=== PATIENT | female | born 1985 | race Two or more races ===

== ENCOUNTER → 2020-06-21 | Outpatient (CLI) | payer SELFPAY ==
--- NOTE | 2020-06-21 16:15 | RADIOLOGY REPORT (SQ) ---
EXAM DESCRIPTION: U/S OB LIMITED IMAGES COMPLETED DATE/TIME: 06/21/2020 3:27 pm REASON FOR STUDY: Z34.83 ENCOUNTER FOR SUPRVSN OF NORMAL , THIRD TRIMESTER Z34.83 ENCOUNTE R FOR SUPRVSN OF NORMAL , THIRD TRIM COMPARISON: None. TECHNIQUE: Limited transabdominal grayscale ultrasound for evaluation of specific requested obstetri cynthia parameters. LIMITATIONS: None. FINDINGS: CERVICAL LENGTH: 4 cm. Closed. AWAIS: 8 cm. LVP: 2.8 x 3 cm. FHR: 143 beats per minute. PRESENTATION: Cephalic. PLACENTA: Posterior. Grade 1. ANATOMY: Stomach, kidneys, and bladder are within within normal limits. OTHER: Intrauterine gestation of 39 weeks 4 day these. IMPRESSION: LIMITED OBSTETRICAL ULTRASOUND WITH MEASURED PARAMETERS DELINEATED ABOVE. Trimester of : Third trimester - 28 weeks to delivery. TECHNICAL DOCUMENTATION: JOB ID: [id number] 2010 [employer]- All Rights Reserved Reading location - IP/workstation name: [email or web address]
== END ==
LOC: RAD 14:55
PROVIDERS: ATTEND Midwife
DX: Z34.83 Encounter for supervision of other normal pregnancy, third trimester (principal); Z3A.39 39 weeks gestation of pregnancy
CPT/HCPCS: 76815

== ENCOUNTER 2020-06-23 13:16 | Outpatient (CLI) | payer SELFPAY ==
--- NOTE | 2020-06-23 14:01 | Non Stress Test Report ---
Non Stress Test Datetime Report Generated by CPN: 06/23/2020 14:00 DEMOGRAPHIC EGA NST: 39.6 INDICATION Indication for Study (NST) Other: ordered from [facility] VITAL SIGNS Temperature - NST: 98.2 Pulse - NST: 80 RESP - NST: 15 NBPSYS NST: 105 NBPDIA NST: 68 MONITORING Monitor Explained: Monitor Explained; Test Explained; Patient Verbalized Understanding Time on Monitor: 06/23/2020 13:28 Time off Monitor: 06/23/2020 13:48 NST Duration: 20 NST INTERVENTIONS NST Interventions: PO Hydration Physician Notified NST: C Downs CNM BABY A: [id number] BABY A Movement : Present Contraction Frequency : 0 FHR Baseline : 125 Accelerations : 15X15 Decelerations : None Variability : Moderate 6-25bpm NST Review: Meets Criteria for Reactive NST NST Review and Verified By : SAutry NST Results: Reactive NST COMMENTS NST Comments: CNM on unit reviewing FHT strip NST REPORT Report Trigger: Send Report
== END 2020-06-23 13:52 | disposition home or self-care (01) ==
LOC: LC 13:16
PROVIDERS: ATTEND Obstetrics & Gynecology
DX: Z34.83 Encounter for supervision of other normal pregnancy, third trimester (principal); Z3A.39 39 weeks gestation of pregnancy
CPT/HCPCS: 59025

== ENCOUNTER 2020-07-01 08:55 | Outpatient (CLI) | payer SELFPAY ==
--- NOTE | 2020-07-01 09:34 | Non Stress Test Report ---
Non Stress Test Datetime Report Generated by CPN: 07/01/2020 09:34 DEMOGRAPHIC EGA NST: 41.0 INDICATION Indication for Study (NST) Other: IUP at 41.0, Bi-weekly NST VITAL SIGNS Temperature - NST: 98.2 Pulse - NST: 90 RESP - NST: 18 NBPSYS NST: 107 NBPDIA NST: 58 MONITORING Monitor Explained: Monitor Explained; Test Explained; Patient Verbalized Understanding Time on Monitor: 07/01/2020 09:09 Time off Monitor: 07/01/2020 09:29 NST Duration: 20 NST INTERVENTIONS NST Interventions: PO Hydration Physician Notified NST: P.Coyne, CNM BABY A: [id number] BABY A Movement : Present Contraction Frequency : None FHR Baseline : 130 Accelerations : 15X15 Decelerations : None Variability : Moderate 6-25bpm NST Review: Meets Criteria for Reactive NST NST Review and Verified By : VERÓNICA Salinas Results: Reactive NST REPORT Report Trigger: Send Report
== END 2020-07-01 10:07 | disposition home or self-care (01) ==
LOC: LC 08:55
PROVIDERS: ATTEND Obstetrics & Gynecology
DX: O48.0 Post-term pregnancy (principal); Z3A.41 41 weeks gestation of pregnancy

== ENCOUNTER 2020-07-02 08:04 | Inpatient (IN) | payer SELFPAY ==
[2020-07-02] MEDS ORDERED: OXYTOCIN/0.9 % SODIUM CHLORIDE 30 UNIT/500 ML RTUINJ IV PRN ×2 (08:16→16:25)
[2020-07-02] MEDS ORDERED: RINGERS SOLUTION,LACTATED 1,000 ML IV ONE (08:20)
[2020-07-02 08:43] LABS: ABSOLUTE LYMPHOCYTES (AUTO) 1.4 10^3/uL (0.5-4.7); ABSOLUTE MONOCYTES (AUTO) 0.5 10^3/uL (0.1-1.4); ABSOLUTE NEUT (AUTO) 4.6 10^3/uL (1.7-8.2); BASOPHILS % (AUTO) 0.4 % (0-2); EOSINOPHILS % (AUTO) 0.7 % (0-6); HEMATOCRIT 34.8 % (36.0-47.0); HEMOGLOBIN 12.5 g/dL (12.0-15.5); LYMPHOCYTES % (AUTO) 21.4 % (13-45); MEAN CORPUSCULAR HEMOGLOBIN 30.6 pg (27.0-33.4); MEAN CORPUSCULAR VOLUME 85 fl (80-97); PLATELET COUNT 133 10^3/uL (150-450); RED BLOOD COUNT 4.09 10^6/uL (3.72-5.28); RED CELL DISTRIBUTION WIDTH 14.4 % (11.5-14.0); SEGMENTED NEUTROPHILS % (AUTO) 69.5 % (42-78); TOTAL CELLS COUNTED % (AUTO) 100 %; WHITE BLOOD COUNT 6.6 10^3/uL (4.0-10.5)
[2020-07-02 08:55] LABS: APPEARANCE,URINE SLIGHTLY-CLOUDY; BILIRUBIN,URINE NEGATIVE (NEGATIVE); COLOR,URINE YELLOW; GLUCOSE, URINE NEGATIVE (NEGATIVE); KETONES,URINE NEGATIVE (NEGATIVE); LEUKOCYTE ESTERASE,URINE NEGATIVE (NEGATIVE); NITRITE,URINE NEGATIVE (NEGATIVE); PROTEIN,URINE NEGATIVE (NEGATIVE); URINE SPECIFIC GRAVITY 1.024
[2020-07-02] MEDS: RINGERS SOLUTION,LACTATED 1,000 ML IV PRN ×2 (09:00→11:30)
[2020-07-02] MEDS ORDERED: PENICILLIN G POTASSIUM 5,000,000 UNIT in DEXTROSE 5%-WATER 100 ML IV ONE (09:00)
[2020-07-02 09:09] LABS: URINE AMPHETAMINES SCREEN NEGATIVE; URINE BARBITURATES SCREEN NEGATIVE; URINE BENZODIAZEPINES SCREEN NEGATIVE; URINE COCAINE SCREEN NEGATIVE; URINE MARIJUANA (THC) SCREEN NEGATIVE; URINE METHADONE SCREEN NEGATIVE; URINE PHENCYCLIDINE SCREEN NEGATIVE
[2020-07-02] MEDS ORDERED: OXYTOCIN 10 UNIT/ML VIAL ONE (09:15)
[2020-07-02] MEDS ORDERED: MISOPROSTOL 0.2 MG TABLET ONE (09:15)
[2020-07-02] MEDS ORDERED: LIDOCAINE 1% INJ-PF (10 MG/ML) 30 ML SDV ONE (09:16)
[2020-07-02] MEDS ORDERED: OXYTOCIN/0.9 % SODIUM CHLORIDE 30 UNIT/500 ML RTUINJ ONE (09:16)
[2020-07-02] MEDS ORDERED: PENICILLIN G-K 5 MILLION UNIT VIAL ONE ×2 (09:16→13:03)
--- NOTE | 2020-07-02 10:48 | Admission Physical ---
Datetime Report Generated by CPN: 07/02/2020 10:47 CURRENT ADMISSION Chief Complaint: Scheduled Induction of Labor Indication for Induction: Post Dates Admit Impression : Term, Intrauterine ; No Active Labor; Intact Membranes; Induction of Labor Admit Plan: Admit to Unit; Initiate Labor Induction Protocol ALLERGIES Medication Allergies: No Medication Allergies: No Known Allergies (06/23/2020) Latex: No Latex Allergies OBSTETRICAL HISTORY EDC: 06/24/2020 00:00 : 2 Para: 1 Term: 1 : 0 SAB: 0 IAB: 0 Ectopic: 0 Livin Cesareans: 0 VBACs: 0 Multiple Births: 0 Gestational Diabetes: No Rh Sensitization: No Incompetent Cervix: No KATELYNN: No Infertility: No ART Treatment: No Uterine Anomaly: No IUGR: No Hx Previous C/S: No Macrosomia: No Hx Loss/Stillborn: No PIH: No Hx : No Placenta Previa/Abruption: No Depression/PP Depression: No PTL/PROM: No Post Hemorrhage: Yes Current Procedures: Ultrasound Obstetrical History Comments: G1- 11/13/2015 , possible PPH from records G2- current; LPNC, induced thrombocytopenia (Annotations: Data stored by CPN on behalf of user) SEE RECORDS Alcohol: No Marijuana : No Cocaine: No Other Illicit Drugs: No Cigarettes: Never Smoker. [id number] Advised to Stop: No MEDICAL HISTORY Diabetes: No Blood Transfusion: No Pulmonary Disease (Asthma, TB): No Breast Disease: No Hypertension: No Administration Specialist Surgery: No Heart Disease: No Hosp/Surgery: Yes Autoimmune Disorder: No Anesthetic Complications: No Kidney Disease: Yes Abnormal Pap Smear: No Neuro/Epilepsy: No Psychiatric Disorders: No Other Medical Diseases: No Hepatitis/Liver Disease: No Significant Family History: No Varicosities/Phlebitis: No Trauma/Violence : No Thyroid Dysfunction: No Medical History Comments: UTIs, childbirth INFECTIOUS HISTORY Gonorrhea: No Genital Herpes: No Chlamydia: No Tuberculosis: No Syphilis: No Hepatitis: No HIV/AIDS Exposure: No Rash or Viral Illness: No HPV: No PHYSICAL EXAM General: Normal HEENT: Normal Neurologic: Normal Thyroid: Deferred Heart: Normal Lungs: Normal Breast: Deferred Back: Normal Abdomen: Normal Genitourinary Exam: Normal Extremities: Normal DTRs: Normal Pelvic Type: Adequate Vital Signs: Reviewed VAGINAL EXAM Dilatation: 2 Effacement: 70 Station: hi Contraction Comments: irreg MEMBRANES Membranes: Intact FETUS A EGA: 41.1 Monitoring: External US FHR- Baseline: 120 Variability: Moderate 6-25bpm Accelerations: 15X15 Decelerations: None FHR Category: Category I Presentation: Vertex Admit Comment: 35yo at 41+1ega presents for IOL due to Post ALEKSANDAR. Late to Care with [facility]. Slovak speaking only. GBS pos on PCN for prophy. Admit to labor and delivery for IOL. Will attempt cervical ripening with pitocin and poss cooks catheter. Anticipate . PLANS FOR LABOR AND DELIVERY Labor and Delivery: None Pain Management: Natural Feeding Preference: Breast Benefit of Breast Feed Discussed: Yes Circumcision: N/A INFORMED CONSENT Informed Consent Obtained: Vaginal Delivery; Induction of Labor; Risks, Benefits and Alternatives Discussed Signature: with User ID: [email or web address]
[2020-07-02] MEDS ORDERED: PENICILLIN G POTASSIUM 2,500,000 UNIT in DEXTROSE 5%-WATER 50 ML IV SCH (13:00)
[2020-07-02] MEDS ORDERED: PSEUDOEPHEDRINE HCL 30 MG TABLET PO PRN (16:25)
[2020-07-02] MEDS ORDERED: PROMETHAZINE HCL INJ 25 MG/1 ML VIAL IV PRN (16:25)
[2020-07-02] MEDS ORDERED: PROMETHAZINE HCL 25 MG TABLET PO PRN (16:25)
[2020-07-02] MEDS ORDERED: NA PHOS,M-B/NA PHOS,DI-BA (ADULT) 133 ML ENEMA PR PRN (16:25)
[2020-07-02] MEDS ORDERED: ACETAMINOPHEN 325 MG TABLET PO PRN (16:25)
[2020-07-02] MEDS ORDERED: ACETAMINOPHEN WITH CODEINE #3 TABLET PO PRN ×2 (16:25)
[2020-07-02] MEDS ORDERED: DIPH/PERTUSS(ACELL)/TETANUS VAC/PF 0.5 ML SYR (>=10YO) IM PRN (16:25)
[2020-07-02] MEDS ORDERED: MAGNESIUM HYDROXIDE SUSP 30 ML UDCUP PO PRN (16:25)
[2020-07-02] MEDS ORDERED: DIBUCAINE 1% OINTMENT 28 GM TP PRN (16:25)
[2020-07-02] MEDS ORDERED: BENZOCAINE/MENTHOL AEROSOL SPRAY 56 ML TOP PRN (16:25)
[2020-07-02] MEDS ORDERED: PROMETHAZINE HCL 25 MG SUPP.RECT PR PRN (16:25)
[2020-07-02] MEDS ORDERED: GLYCERIN/WITCH HAZEL LEAF 1 EACH MED..WIPE TP PRN (16:25)
[2020-07-02] MEDS ORDERED: MEASLES,MUMPS&RUBELLA VACC/PF 0.5 ML VIAL SUBCUT PRN (16:25)
[2020-07-02] MEDS ORDERED: ZOLPIDEM TARTRATE 5 MG TABLET PO PRN (16:25)
[2020-07-02] MEDS ORDERED: DIPHENHYDRAMINE HCL 25 MG CAPSULE PO PRN (16:25)
[2020-07-02 17:59] LABS: HEMATOCRIT 35.8 % (36.0-47.0); HEMOGLOBIN 12.4 g/dL (12.0-15.5); MEAN CORPUSCULAR HEMOGLOBIN 29.9 pg (27.0-33.4); MEAN CORPUSCULAR HGB CONC 34.7 g/dL (32.0-36.0); MEAN CORPUSCULAR VOLUME 86 fl (80-97); PLATELET COUNT 142 10^3/uL (150-450); RED BLOOD COUNT 4.15 10^6/uL (3.72-5.28); RED CELL DISTRIBUTION WIDTH 14.6 % (11.5-14.0); WHITE BLOOD COUNT 12.8 10^3/uL (4.0-10.5)
[2020-07-02 18:01] LABS: PROTHROMBIN TIME 13.4 SEC (11.4-15.4)
[2020-07-02] MEDS ORDERED: IBUPROFEN 800 MG TABLET ONE (18:02)
[2020-07-02] MEDS ORDERED: FERROUS SULFATE 325 MG TABLET PO ONE (18:51)
[2020-07-02] MEDS ORDERED: DOCUSATE SODIUM 100 MG CAPSULE ONE (18:51)
[2020-07-02] MEDS: DOCUSATE SODIUM 100 MG CAPSULE PO SCH (18:53)
[2020-07-02] MEDS: FERROUS SULFATE 325 MG TABLET PO SCH (18:53)
[2020-07-02] MEDS ORDERED: ACETAMINOPHEN WITH CODEINE #3 TABLET ONE (19:01)
--- NOTE | 2020-07-02 19:08 | Delivery Summary ---
Del Sum A-C Datetime Report Generated by CPN: 07/02/2020 19:08 DELIVERY PERSONNEL DELIVERY PERSONNEL: [id number] Delivery Doctor:: Meredith Posadas CNM Labor and Delivery Nurse:: Lea Swift RNmeter record clerk Nurse:: LACIE Zabala Wallpaper Printer/ELECTRIC DISTRIBUTION ENGINEER: Fawn Kent, MERCHANDISING MANAGER Wallpaper Printer/ELECTRIC DISTRIBUTION ENGINEER: Irene Pop, MERCHANDISING MANAGER MATERNAL INFORMATION Delivery Anesthesia: None Medications After Delivery: Pitocin 30 Units in 500ml NS/D5W; Cytotec 1000mcg Per Rectum/Vagina Delivery QBL: 980 Maternal Complications: None Provider Comments: SVDVF delivered CHRISTELLE. Infant vigorous to mothers abd for drying. Large gush of blood about 1 minute later, cord doubly clamped and cut. Attempted to deliver placenta spontaneously. Manual removal after another gush of blood. Membranes trailing and difficulty to remove. Multiple fibroids noted on exam of fundus during massage. Cytotec placed rectally. Laceration repair as above. Then uterine exploration d/t continued trickling blood, piece of membranes removed with clots. Bleeding stabilized. Mother and stable. Apgars 9.9. Dr. Vargas notified of approx 900ml blood loss, labs ordered. Monitor bleeding closely. LABOR SUMMARY EDC: 06/24/2020 00:00 No. Babies in Womb: 1 Attempted: No Labor Anesthesia: None LABOR INFORMATION Reason for Induction: Post Dates Onset of Labor: 07/02/2020 13:59 Complete Dilatation: 07/02/2020 16:15 Oxytocin: Induction Group B Beta Strep: Positive Antibiotics # of Doses: 2 Antibiotics Time of Last Dose: 07/02/2020 13:17 Name of Antibiotic Given: PCN Steroids Given: None Reason Steroids Not Administered: Not Applicable MEMBRANES Membranes Rupture Method: Artificial Rupture of Membranes: 07/02/2020 13:59 Length of Rupture (hr): 2.43 Amniotic Fluid Color: Clear Amniotic Fluid Amount: Small Amniotic Fluid Odor: Normal STAGES OF LABOR Stage 1 hr: 2 Stage 1 min: 16 Stage 2 hr: 0 Stage 2 min: 10 Stage 3 hr: 0 Stage 3 min: 4 Total Time in Labor hr: 2 Total Time in Labor min: 30 VAGINAL DELIVERY Episiotomy: None Laceration #1: Perineal Laceration Extension #1: Second Degree Laceration Repair: Yes Laceration Repair Note: 2.0 chromic used to reapproximate perineal laceration Sponge Count Correct: Yes Sharps Count Correct: Yes CSECTION DELIVERY Primary Indication: N/A Secondary Indication: N/A CSection Incidence: N/A Labor: N/A Elective: N/A CSection Incision: N/A BABY A INFORMATION Delivery Date/Time: 07/02/2020 16:25 Method of Delivery: Vaginal Nurse Controlled Delivery: No Born in Route : No : N/A Forceps: N/A Vacuum Extraction: N/A Shoulder Dystocia : No PRESENTATION/POSITION BABY A Presentation: Cephalic Cephalic Presentation: Vertex Vertex Position: Right Occipital Anterior Breech Presentation: N/A PLACENTA INFORMATION BABY A Placenta Delivery Time : 07/02/2020 16:29 Placenta Method of Delivery: Spontaneous Placenta Status: Delivered SCORES BABY A Heart Rate 1 min: >100 bpm Resp Effort 1 min: Good Cry Reflex Irritability 1 min: Cough or Sneeze or Pulls Away Muscle Tone 1 min: Active Motion Color 1 min: Body [place], Extremities Blue Resuscitation Effort 1 min: Tactile Stimulation SCORE 1 MIN: 9 Heart Rate 5 min: >100 bpm Resp Effort 5 min: Good Cry Reflex Irritability 5 min: Cough or Sneeze or Pulls Away Muscle Tone 5 min: Active Motion Color 5 min: Body [place], Extremities Blue Resuscitation Effort 5 min: Tactile Stimulation SCORE 5 MIN: 9 INFANT INFORMATION BABY A Gestational Age at Delivery: 41.1 Gestational Status: Late Term- 41- 41.6 Weeks Infant Outcome : Liveborn Infant Condition : Stable Infant Sex: Female IDENTIFICATION BABY A Infant Verification Date/Time: 07/02/2020 16:50 ID Band Number: [id number] Mother's Name Verified: Yes RN Verifying : B Baidy, RN Additional Verifying Personnel: Luz Marina Turner, RN WEIGHT/LENGTH BABY A Infant Birthweight (gm): 3050 Weight (lb): 6 Infant Weight (oz): 12 Infant Length (in): 20.75 Infant Length (cm): 52.71 CORD INFORMATION BABY A No. Cord Vessels: 3 Nuchal Cord : N/A Cord Blood Taken: Yes-For Storage (Mom's Blood type +) Infant Suction: None ASSESSMENT BABY A Skin to Skin: Yes Skin to Skin Time (min): 60 BABY B INFORMATION : N/A SIGNATURES Assignment: Opal Vargas MD Signature: with User ID: [email or web address] : with User ID: [email or web address] : I was personally available for consultation and serving as supervising physician for the MLP.
--- NOTE | 2020-07-02 19:08 | Birth Certificate Data ---
Cert Data Datetime Report Generated by [facility]: 07/02/2020 19:08 CERTIFICATE DATA 47a. Care: No (06/23/2020 13:18:Hailey Gustafson RN) 47b. Date of First Visit: 04/09/2020 00:00 (06/23/2020 13:18:Lea Swift RN) 47c. Date of Last Visit: 06/28/2020 00:00 (06/23/2020 13:18:Lea Swift RN) 47d. Number of Visits: 7 (06/23/2020 13:18:Lea Swift RN) 48a. Number of Prev Live Births: 1 (06/23/2020 13:18:Hailey Gustafson RN) 48b. Now Livin (06/23/2020 13:18:Hailey Gustafson RN) 48c. Live Births Now : 0 (06/23/2020 13:18:QS system process) 48d. Date of Last Live : 11/13/2015 00:00 (06/23/2020 13:18:LACIE Gil) 48e. Losses: 0 (06/23/2020 13:18:Hailey Gustafson RN) RISK FACTORS IN THIS 49a. Diabetes: No (06/23/2020 13:18:Lea Swift RN) 49b. Hypertension: No (06/23/2020 13:18:Lea Swift RN) 49c. Previous Births: 0 (06/23/2020 13:18:Hailey Gustafson RN) 49d. Stillborns: No (06/23/2020 13:18:Hailey Gustafson RN) 49d. IUGR: No (06/23/2020 13:18:Hailey Gustafson RN) 49e. Infertility Treatment: No (06/23/2020 13:18:Lea Swift RN) 49f. Previous Cesareans: 0 (06/23/2020 13:18:Hailey Gustafson RN) Mother's Height 50b. Height Inches: 60 (07/02/2020 08:15:QS system process) Mother's Weight 51a. Pre- Weight (lbs): 140 (06/23/2020 13:18:LACIE Gil) 51b. Weight at Delivery (lbs): 169 (07/02/2020 18:08:QS system process) 52. Dt Last Normal Menses Began: 09/18/2019 00:00 (06/23/2020 13:18:Lea Swift RN) Infections Present/Treated 53a. Gonorrhea: No (06/23/2020 13:18:Lea Swift RN) Results this Hospital Visit : Negative (06/23/2020 13:18:Hailey Gustafson RN) 53b. Syphilis: No (06/23/2020 13:18:Lea Swift RN) Results this Hospital Visit: NONREACTIVE (07/02/2020 08:25:QS system process) 53c. Chlamydia: No (06/23/2020 13:18:Lea Swift RN) Results this Hospital Visit: Negative (06/23/2020 13:18:Hailey Gustafson RN) 53d. Hepatitis B: No (06/23/2020 13:18:Hailey Gustafson RN) Results this Hospital Visit: Negative (06/23/2020 13:18:Hailey Gustafson RN) 53e. Hepatitis C: Negative (06/23/2020 13:18:Hailey Gustafson RN) 53h. Mother Tested for HBsAG: Yes (06/23/2020 13:18:Hailey Gustafson RN) 53i. Date Tested: 04/22/2020 00:00 (06/23/2020 13:18:Hailey Gustafson RN) 53j. Test Result: Negative (06/23/2020 13:18:Hailey Gustafson RN) Obstetric Procedures 54a, b, c. Obstetric Procedures: Ultrasound (06/23/2020 13:18:Lea Swift RN) Cigarette Smoking Cigarette Smoking: Never Smoker. [id number] (06/23/2020 13:18:Stacey Camp, RNC) 55a. 3 Months Before Preg - Ci (06/23/2020 13:18:Stacey Camp, RNC) 55a. Packs: 0 (06/23/2020 13:18:Stacey Camp, RNC) 55b. 1st Trimester of Preg- Ci (06/23/2020 13:18:Stacey Camp, RNC) 55b. Packs: 0 (06/23/2020 13:18:Stacey Camp, RNC) 55c. 2nd Trimester of Preg- Ci (06/23/2020 13:18:Stacey Camp, RNC) 55c. Packs: 0 (06/23/2020 13:18:Stacey Camp, RNC) 55d. 3rd Trimester of Preg- Ci (06/23/2020 13:18:Stacey Camp, RNC) Onset of Labor 56a. PROM >12 Hrs: 2.43 (06/23/2020 13:18:QS system process) 56b. Precipitous Labor <3 Hrs: 2 (06/23/2020 13:18:QS system process) 56c. Prolonged Labor > 20 Hrs: 2 (06/23/2020 13:18:QS system process) 57a. Induction of Labor: Induction (06/23/2020 13:18:Lea Swift RN) 57c. Non-Vertex Presentation A: Vertex (06/23/2020 13:18:Lea Swift RN) 57d. Steroids - Lung Mat: None (06/23/2020 13:18:Lea Swift RN) 57d. Steroids - Lung Mat: Not Applicable (06/23/2020 13:18:Lea Swift RN) 57e. Antibiotics During Labor: 07/02/2020 13:17 (06/23/2020 13:18:Lea Swift RN) 57g. Moderate/Heavy Meconium: Clear (07/02/2020 13:59:Lea Swift RN) 57h. Intolerance of Labor: N/A (06/23/2020 13:18:Lea Swift RN) : N/A (06/23/2020 13:18:Lea Swift RN) 57i. Epidural/Spinal Anesthesia: None (06/23/2020 13:18:Lea Swift RN) Method of Delivery 58a. Forceps - Unsuccessful A: N/A (06/23/2020 13:18:Carolyn Lomas RN) 58b. Vacuum - Unsuccessful A: N/A (06/23/2020:18:Carolyn Lomas RN) 58c. Presentation at 58c. Presentation at - A : Vertex (06/23/2020 13:18:Lea Swift RN) 58c. Presentation at - A : N/A (06/23/2020 13:18:Lea Swift RN) 58c. Presentation at - A : Cephalic (07/01/2020 09:38:Stacey Iniguez [facility]) Final Route and Method of Del 58d. Baby A Route/Delivery: Vaginal (07/02/2020 16:25:Lea Switf RN) 58e. Trial of Labor Attempted: No (06/23/2020 13:18:Lea Swift RN) 58e. Trial of Labor Attempted A: N/A (06/23/2020 13:18:Lea Swift RN) 58e. Trial of Labor Attempted B: N/A (06/23/2020 13:18:Lea Swift RN) Maternal Morbidity 59b. 3rd or 4th Degree Lacs: Perineal (06/23/2020 13:18:Meredith Posadas CNM) 59b. 3rd or 4th Degree Lacs: Second Degree (06/23/2020 13:18:Lea Swift RN) Birthweight Baby A: 3050 (06/23/2020 13:18:Lea Swift RN) 60a. Pounds : 6 (06/23/2020 13:18:QS system process) 60b. Ounces: 12 (06/23/2020 13:18:QS system process) 61. GA at Delivery Baby A: 41.1 (06/23/2020 13:18:Lea Swift RN) : Late Term- 41- 41.6 Weeks (06/23/2020 13:18:QS system process) 62a. 5 Minute Baby A: 9 (06/23/2020 13:18:QS system process)
--- NOTE | 2020-07-02 19:57 | Warning Signs in Babies ---
VOD Warning Signs Datetime Report Generated by [facility]: 07/02/2020 19:57 VOD#608 -Warning Signs in Babies: Needs to be viewed. (07/02/2020 19:15:Radha Noble RN)
[2020-07-02] MEDS ORDERED: BENZOCAINE/MENTHOL AEROSOL SPRAY 56 ML ONE (20:08)
[2020-07-02] MEDS ORDERED: MISOPROSTOL 0.2 MG TABLET PR ONE (21:00)
[2020-07-02] MEDS: FAMOTIDINE 20 MG TABLET PO SCH (21:34)
[2020-07-02] MEDS ORDERED: IBUPROFEN 800 MG TABLET PO SCH (22:00)
[2020-07-02] MEDS ORDERED: ACETAMINOPHEN WITH CODEINE #3 TABLET PO ONE (22:15)
[2020-07-03] MEDS: IBUPROFEN 800 MG TABLET PO SCH ×3 (02:17→18:26)
[2020-07-03 08:37] LABS: HEMOGLOBIN 11.1 g/dL (12.0-15.5); MEAN CORPUSCULAR HEMOGLOBIN 30.4 pg (27.0-33.4); MEAN CORPUSCULAR HGB CONC 35.8 g/dL (32.0-36.0); MEAN CORPUSCULAR VOLUME 85 fl (80-97); PLATELET COUNT 126 10^3/uL (150-450); RED BLOOD COUNT 3.65 10^6/uL (3.72-5.28); RED CELL DISTRIBUTION WIDTH 14.2 % (11.5-14.0); WHITE BLOOD COUNT 11.2 10^3/uL (4.0-10.5)
[2020-07-03] MEDS ORDERED: INFLUENZA QUAD (6MOS+) 2020-21 VAC 0.5 ML SYR IM ONE (09:30)
[2020-07-03] MEDS: FERROUS SULFATE 325 MG TABLET PO SCH ×2 (10:40→18:26)
[2020-07-03] MEDS: FAMOTIDINE 20 MG TABLET PO SCH ×2 (10:40→21:32)
[2020-07-03] MEDS: SENNOSIDES/DOCUSATE 8.6-50 MG 1 EACH TABLET PO SCH (10:40)
[2020-07-03] MEDS: PRENATAL VITAMIN W DHA CAPSULE PO SCH (10:41)
[2020-07-03] MEDS: DOCUSATE SODIUM 100 MG CAPSULE PO SCH ×2 (10:41→18:26)
--- NOTE | 2020-07-03 10:56 | RADIOLOGY REPORT (SQ) ---
EXAM DESCRIPTION: U/S NON OB PEL W/DOPPLER IMAGES COMPLETED DATE/TIME: 07/03/2020 10:30 am REASON FOR STUDY: previously unknwn mass after delivery, fibroids COMPARISON: None. TECHNIQUE: Dynamic and static grayscale images acquired of the pelvis via transabdominal approach an d recorded on PACS. Additional selected color Doppler and spectral images recorded. LIMITATIONS: None. FINDINGS: UTERUS: Markedly enlarged. Cannot be completely imaged. 2 fibroids. 3 cm 6 cm. ENDOMETRIAL STRIPE: No focal or generalized thickening. No masses. CERVIX: Complex 6 cm collection within the cervix. Possibly blood products. RIGHT OVARY AND DOPPLER: Normal size. No worrisome masses. Normal arterial vascular flow without evid ence for torsion. LEFT OVARY AND DOPPLER: Normal size. No worrisome masses. Normal arterial vascular flow without evide nce for torsion. FREE FLUID: None noted. OTHER: No other significant finding. MEASUREMENTS: UTERUS: 19 cm ENDOMETRIAL STRIPE: 9 mm RIGHT OVARY: 3 cm LEFT OVARY: 3.4 cm IMPRESSION: Markedly enlarged uterus with at least 2 fibroids. Complex 6 cm area in the cervix probably within the cervical canal and possibly blood products. TECHNICAL DOCUMENTATION: JOB ID: [id number] 2010 [employer]- All Rights Reserved Rev-02/08 Reading location - IP/workstation name: [email or web address]
--- NOTE | 2020-07-03 11:15 | PDOC PROGRESS REPORT ---
Subjective-OB Progress Note for:: 07/03/20 Subjective: Pt doing well, no concerns. She went to radiology this am for ultrasound. She reports light bleeding with small clots size of a quarter. Reg diet, voiding w/o difficulty. at bedside, some kinyarwanda. Google translate used to interpret. Physical Exam (OB) Vital Signs: Temp Pulse Resp BP Pulse Ox 97.9 F 83 18 133/72 H 97 07/03/20 10:00 07/02/20 20:26 07/02/20 20:26 07/02/20 20:26 07/02/20 20:26 Intake & Output 07/02/20 07/03/20 07/04/20 06:59 06:59 06:59 Intake Total 313 Balance 313 Weight 76.5 kg - PIH/Pre-Eclampsia DTR's: 2 + Clonus: Negative Headache: Absent Epigastric Pain: No Visual Changes: No - Maternal Morbidity 59. Maternal Morbidity (serious complications experinced by the mother associated with labor and delivery: None of the above - Lochia Lochia Amount: Small 10-25 ml Lochia Color: Rubra/Red - Abdomen Description: Round Hernia Present: No Fundal Description: Firm, Midline Fundal Height: u/u - u/2 Objective-Diagnostic Laboratory: 07/03/20 08:00 07/02/20 07/03/20 17:49 08:00 WBC 12.8 H 11.2 H RBC 4.15 3.65 L Hgb 12.4 11.1 L Hct 35.8 L 31.0 L MCV 86 85 MCH 29.9 30.4 MCHC 34.7 35.8 RDW 14.6 H 14.2 H Plt Count 142 L 126 L Assessment and Plan(PN) - Assessment and Plan (1) Gestational thrombocytopenia Qualifiers: Trimester: third trimester Qualified Code(s): O99.113 - Other diseases of the blood and blood-forming organs and certain disorders involving the immune mechanism complicating , third trimester; D69.6 - Thrombocytopenia, unspecified Is this a current diagnosis for this admission?: Yes (2) Laceration, obstetrical, second degree Is this a current diagnosis for this admission?: Yes (3) Post-term Qualifiers: Post-term type: 40-42 weeks gestation Qualified Code(s): O48.0 - Post-term Is this a current diagnosis for this admission?: Yes (4) hemorrhage Qualifiers: hemorrhage type: third-stage Qualified Code(s): O72.0 - Third- stage hemorrhage Is this a current diagnosis for this admission?: Yes (5) Uterine fibroid during , delivered, current hospitalization Is this a current diagnosis for this admission?: Yes (6) Vaginal delivery Is this a current diagnosis for this admission?: Yes - Time Spent with Patient Time with patient: Less than 15 minutes Medications reviewed and adjusted accordingly: Yes - Disposition Anticipated Discharge Disposition: Home, Self Care Anticipated Discharge Timeframe: within 24 hours
[2020-07-04] MEDS: IBUPROFEN 800 MG TABLET PO SCH ×2 (02:02→09:47)
[2020-07-04 07:27] VITALS: BP 100/60
[2020-07-04] MEDS: SENNOSIDES/DOCUSATE 8.6-50 MG 1 EACH TABLET PO SCH (09:47)
[2020-07-04] MEDS: DOCUSATE SODIUM 100 MG CAPSULE PO SCH (09:47)
[2020-07-04] MEDS: FERROUS SULFATE 325 MG TABLET PO SCH (09:47)
[2020-07-04] MEDS: FAMOTIDINE 20 MG TABLET PO SCH (09:49)
[2020-07-04] MEDS: PRENATAL VITAMIN W DHA CAPSULE PO SCH (09:49)
--- NOTE | 2020-07-04 10:31 | PDOC DISCHARGE SUMMARY ---
Impression - Admit/DC Date/PCP Admission Date/Primary Care Provider: 07/02/20 08:04 Discharge Date: 07/04/20 - Discharge Diagnosis (1) Gestational thrombocytopenia Is this a current diagnosis for this admission?: Yes (2) Laceration, obstetrical, second degree Is this a current diagnosis for this admission?: Yes (3) Post-term Is this a current diagnosis for this admission?: Yes (4) hemorrhage Is this a current diagnosis for this admission?: Yes (5) Uterine fibroid during , delivered, current hospitalization Is this a current diagnosis for this admission?: Yes (6) Vaginal delivery Is this a current diagnosis for this admission?: Yes - Additional Information Resuscitation Status: Full Code Discharge Diet: Regular Discharge Activity: Balance Activity w/Rest, Pelvic Rest Prescriptions: Ibuprofen [Motrin 800 mg Tablet] 800 mg PO Q8HP PRN #60 tablet PRN Reason: Home Medications: Vit/Iron Fum/Folic AC [ Tablet] 1 tab PO DAILY 11/13/15 Ibuprofen [Motrin 800 mg Tablet] 800 mg PO Q8HP PRN #60 tablet 07/04/20 Hospital Course 59. Maternal Morbidity (serious complications experinced by the mother associated with labor and delivery: None of the above Results Laboratory Results: WBC 11.2 10^3/uL (4.0-10.5) H 07/03/20 08:00 RBC 3.65 10^6/uL (3.72-5.28) L 07/03/20 08:00 Hgb 11.1 g/dL (12.0-15.5) L 07/03/20 08:00 Hct 31.0 % (36.0-47.0) L 07/03/20 08:00 MCV 85 fl (80-97) 07/03/20 08:00 MCH 30.4 pg (27.0-33.4) 07/03/20 08:00 MCHC 35.8 g/dL (32.0-36.0) 07/03/20 08:00 RDW 14.2 % (11.5-14.0) H 07/03/20 08:00 Plt Count 126 10^3/uL (150-450) L 07/03/20 08:00 Lymph % (Auto) 21.4 % (13-45) 07/02/20 08:25 Parmer % (Auto) 8.0 % (3-13) 07/02/20 08:25 Eos % (Auto) 0.7 % (0-6) 07/02/20 08:25 Baso % (Auto) 0.4 % (0-2) 07/02/20 08:25 Absolute Neuts (auto) 4.6 10^3/uL (1.7-8.2) 07/02/20 08:25 Absolute Lymphs (auto) 1.4 10^3/uL (0.5-4.7) 07/02/20 08:25 Absolute Monos (auto) 0.5 10^3/uL (0.1-1.4) 07/02/20 08:25 Absolute Eos (auto) 0.0 10^3/uL (0.0-0.6) 07/02/20 08:25 Absolute Basos (auto) 0.0 10^3/uL (0.0-0.2) 07/02/20 08:25 Seg Neutrophils % 69.5 % (42-78) 07/02/20 08:25 PT 13.4 SEC (11.4-15.4) 07/02/20 17:49 INR 1.00 07/02/20 17:49 APTT 29.0 SEC (23.5-35.8) 07/02/20 17:49 Urine Color YELLOW 07/02/20 08:11 Urine Appearance SLIGHTLY-CLOUDY 07/02/20 08:11 Urine pH 6.0 (5.0-9.0) 07/02/20 08:11 Ur Specific [place] 1.024 07/02/20 08:11 Urine Protein NEGATIVE mg/dL (NEGATIVE) 07/02/20 08:11 Urine Glucose (UA) NEGATIVE mg/dL (NEGATIVE) 07/02/20 08:11 Urine Ketones NEGATIVE mg/dL (NEGATIVE) 07/02/20 08:11 Urine Blood NEGATIVE (NEGATIVE) 07/02/20 08:11 Urine Nitrite NEGATIVE (NEGATIVE) 07/02/20 08:11 Urine Bilirubin NEGATIVE (NEGATIVE) 07/02/20 08:11 Urine Urobilinogen 2.0 mg/dL (<2.0) H 07/02/20 08:11 Ur Leukocyte Esterase NEGATIVE (NEGATIVE) 07/02/20 08:11 Urine Ascorbic Acid 40 (NEGATIVE) H 07/02/20 08:11 Urine Opiates Screen NEGATIVE 07/02/20 08:11 Urine Methadone Screen NEGATIVE 07/02/20 08:11 Ur Barbiturates Screen NEGATIVE 07/02/20 08:11 Ur Phencyclidine Scrn NEGATIVE 07/02/20 08:11 Ur Amphetamines Screen NEGATIVE 07/02/20 08:11 U Benzodiazepines Scrn NEGATIVE 07/02/20 08:11 Urine Cocaine Screen NEGATIVE 07/02/20 08:11 U Marijuana (THC) Screen NEGATIVE 07/02/20 08:11 RPR NONREACTIVE (NONREACTIVE) 07/02/20 08:25 Blood Type AB POSITIVE 07/02/20 08:25 Antibody Screen NEGATIVE 07/02/20 08:25 Impressions: Pelvis Ultrasound 07/03/20 10:00 IMPRESSION: Markedly enlarged uterus with at least 2 fibroids. Complex 6 cm area in the cervix probably within the cervical canal and possibly blood products. Plan Plan of Treatment: f/u at [facility] for check in 4 wks Time Spent: Less than 30 Minutes
== END 2020-07-04 14:30 | disposition home or self-care (01) | DRG 806 ==
LOC: LR 08:04 → 2S 20:20
PROVIDERS: ADMIT Student in an Organized Health Care Education/Training Program; ATTEND Student in an Organized Health Care Education/Training Program
PROC: 10E0XZZ Delivery of Products of Conception, External Approach (ICD-10-PCS; principal; 2020-07-02)
PROC: 0KQM0ZZ Repair Perineum Muscle, Open Approach (ICD-10-PCS; 2020-07-02)
PROC: 3E033VJ Introduction of Other Hormone into Peripheral Vein, Percutaneous Approach (ICD-10-PCS; 2020-07-02)
PROC: 10907ZC Drainage of Amniotic Fluid, Therapeutic from Products of Conception, Via Natural or Artificial Opening (ICD-10-PCS; 2020-07-02)
PROC: 3E02340 Introduction of Influenza Vaccine into Muscle, Percutaneous Approach (ICD-10-PCS; 2020-07-04)
DX: O48.0 Post-term pregnancy (principal); O99.12 Other diseases of the blood and blood-forming organs and certain disorders involving the immune mechanism complicating childbirth; Z37.0 Single live birth; O72.0 Third-stage hemorrhage; D69.6 Thrombocytopenia, unspecified; O34.13 Maternal care for benign tumor of corpus uteri, third trimester; O70.1 Second degree perineal laceration during delivery; D25.9 Leiomyoma of uterus, unspecified; O99.824 Streptococcus B carrier state complicating childbirth; Z3A.41 41 weeks gestation of pregnancy; Z23 Encounter for immunization
CPT/HCPCS: 36415; 76856; 80307; 81005; 85025; 85027; 85610; 85730; 86592; 86850; 86900; 86901; 88307; 90471; 90686; 93976; 94760; G0008; J2540; J2590; J3490; J7060